=== PATIENT | female | born 1955 | race Caucasian/White ===

== ENCOUNTER → 2017-04-06 | Outpatient (CLI) | payer OTHER | END | disposition home or self-care (01) | LOC: MI 09:39 | PROC: BP3LZZZ Magnetic Resonance Imaging (MRI) of Right Wrist (ICD-10-PCS; principal; 2017-04-06) | DX: R22.31 Localized swelling, mass and lump, right upper limb (principal) ==

== ENCOUNTER 2017-06-25 08:10 | Day surgery (SDC) | payer OTHER ==
[~2017-06-25] VITALS: Ht 172.7 cm; Wt 65.8 kg
[2017-06-25 08:21] VITALS: BP 145/82
[2017-06-25 10:08] VITALS: BP 124/64
== END 2017-06-25 10:50 | disposition home or self-care (01) ==
LOC: GI 08:10 → OR 11:30
PROVIDERS: Internal Medicine Gastroenterology
PROC: 0DJ08ZZ Inspection of Upper Intestinal Tract, Via Natural or Artificial Opening Endoscopic (ICD-10-PCS; principal; 2017-06-25 09:30)
DX: K21.9 Gastro-esophageal reflux disease without esophagitis (principal); Z98.84 Bariatric surgery status; Z98.0 Intestinal bypass and anastomosis status
CPT/HCPCS: 43235; J1200; J1610; J2250; J2310; J3010; J3360; J3490

== ENCOUNTER 2018-01-06 06:40 | Emergency (ER) | payer OTHER ==
[~2018-01-06] VITALS: Ht 170.2 cm; Wt 65.5 kg
[2018-01-06 06:50] VITALS: Ht 170.2 cm; Wt 65.5 kg
[2018-01-06 08:15] VITALS: BP 138/77
== END 2018-01-06 08:15 | disposition home or self-care (01) ==
LOC: ED 06:40
DX: S79.911A Unspecified injury of right hip, initial encounter (principal); I10 Essential (primary) hypertension; X58.XXXA Exposure to other specified factors, initial encounter; Y93.89 Activity, other specified; Y92.89 Other specified places as the place of occurrence of the external cause; Y99.8 Other external cause status
CPT/HCPCS: J1170; J1885; Q0162

== ENCOUNTER 2018-01-09 11:04 | Emergency (ER) | payer OTHER ==
[~2018-01-09] VITALS: Ht 170.2 cm; Wt 67.6 kg
[2018-01-09 12:03] VITALS: BP 131/48; Ht 170.2 cm; Wt 67.6 kg
== END 2018-01-09 14:56 | disposition home or self-care (01) ==
LOC: ED 11:04
DX: G89.29 Other chronic pain (principal); M25.551 Pain in right hip; I10 Essential (primary) hypertension; E03.9 Hypothyroidism, unspecified; Z96.641 Presence of right artificial hip joint

== ENCOUNTER → 2018-09-16 | Outpatient (CLI) | payer OTHER | END | disposition home or self-care (01) | LOC: MI 11:33 | PROC: BR39ZZZ Magnetic Resonance Imaging (MRI) of Lumbar Spine (ICD-10-PCS; principal; 2018-09-16) | DX: M54.5 Low back pain (principal) ==

== ENCOUNTER → 2019-04-04 | Day surgery (SDC) | payer OTHER ==
[~2019-04-04] VITALS: Ht 170.2 cm; Wt 74.8 kg
[2019-04-04 06:59] VITALS: BP 139/89
[2019-04-04 10:52] VITALS: BP 136/70
== END | disposition home or self-care (01) ==
LOC: DS 06:22 → OR 09:00
DX: K21.0 Gastro-esophageal reflux disease with esophagitis (principal); K44.9 Diaphragmatic hernia without obstruction or gangrene; K22.10 Ulcer of esophagus without bleeding; E03.9 Hypothyroidism, unspecified; Z79.899 Other long term (current) drug therapy; Z96.641 Presence of right artificial hip joint; Z98.84 Bariatric surgery status; Z90.722 Acquired absence of ovaries, bilateral; Z90.710 Acquired absence of both cervix and uterus; Z87.59 Personal history of other complications of pregnancy, childbirth and the puerperium; Z98.890 Other specified postprocedural states
CPT/HCPCS: 43235; G0500; J1200; J1610; J2250; J2310; J3010; J3490

== ENCOUNTER 2019-05-24 07:39 | Day surgery (SDC) | payer OTHER ==
[~2019-05-24] VITALS: Ht 170.2 cm; Wt 77.1 kg
[2019-05-24 08:05] VITALS: BP 138/80
[2019-05-24 10:49] VITALS: BP 129/62
== END 2019-05-24 10:05 | disposition home or self-care (01) ==
LOC: DS 07:39 → OR 10:15 → DS 10:15
PROVIDERS: Anesthesiology Pain Medicine
PROC: 3E0U33Z Introduction of Anti-inflammatory into Joints, Percutaneous Approach (ICD-10-PCS; 2019-05-24)
PROC: BR16YZZ Fluoroscopy of Lumbar Facet Joint(s) using Other Contrast (ICD-10-PCS; 2019-05-24)
PROC: 3E0U3BZ Introduction of Anesthetic Agent into Joints, Percutaneous Approach (ICD-10-PCS; principal; 2019-05-24 08:30)
DX: M47.26 Other spondylosis with radiculopathy, lumbar region (principal); M48.061 Spinal stenosis, lumbar region without neurogenic claudication; M51.16 Intervertebral disc disorders with radiculopathy, lumbar region; M51.26 Other intervertebral disc displacement, lumbar region; G89.4 Chronic pain syndrome; K44.9 Diaphragmatic hernia without obstruction or gangrene; E03.9 Hypothyroidism, unspecified; Z68.26 Body mass index [BMI] 26.0-26.9, adult; Z98.84 Bariatric surgery status; Z96.641 Presence of right artificial hip joint
CPT/HCPCS: 77003; J2001; J2250; J3010; J3301; J3490; Q9967

== ENCOUNTER → 2019-11-27 | Outpatient (CLI) | payer OTHER | END | disposition home or self-care (01) | LOC: MI 09:50 | PROC: BR39ZZZ Magnetic Resonance Imaging (MRI) of Lumbar Spine (ICD-10-PCS; principal; 2019-11-27) | DX: M54.16 Radiculopathy, lumbar region (principal) ==